=== PATIENT | male | born 1965 | race Caucasian/White ===

== ENCOUNTER → 2017-02-21 | Outpatient (REF) | payer MEDICARE, MEDICAID ==
[~2017-02-21] MED LIST: /ESCI20TA OR; ATIV0.5T OR; CELE20TA OR; CELE40TA OR; IBUP600T OR; INSENTRESS PO; LEXA1TAB2 PO; LEXA5SOL PO; LORA1TAB OR; RISP1TAB41 PO; RISP25INJ IM; RISP2TAB12 OR; RISP3TAB16 OR; RISP3TAB18 PO; RISP3TAB2 PO; RISP4TAB OR; RISP4TAB33 PO; SERO200T OR; SERO200T PO; SERO400T PO; STRITAB PO; TRAZ50TA OR; TRU; TRUVTAB5 PO; VENL75TA2 OR; WELL75TA OR; truvada PO
[2017-02-21 13:19] LABS: ALBUMIN 3.9 GM/DL (3.2-5.2); ALBUMIN/GLOBULIN RATIO 1.08 (1.00-1.93); ALKALINE PHOSPHATASE 93 U/L (45-117); ALT/SGPT 29 U/L (12-78); ANION GAP 4 MEQ/L (8-16); AST/SGOT 23 U/L (15-37); BILIRUBIN,TOTAL 0.4 MG/DL (0.2-1.0); BLOOD UREA NITROGEN 17 MG/DL (7-18); CALCIUM LEVEL 9.4 MG/DL (8.5-10.1); CARBON DIOXIDE LEVEL 32 MEQ/L (21-32); CHLORIDE LEVEL 105 MEQ/L (98-107); CREATININE FOR GFR 0.84 MG/DL (0.70-1.30); GLOMERULAR FILTRATION RATE > 60.0 (>56); GLUCOSE, FASTING 90 MG/DL (70-105); POTASSIUM SERUM 4.9 MEQ/L (3.5-5.1); SODIUM LEVEL 141 MEQ/L (136-145); TOTAL PROTEIN 7.5 GM/DL (6.4-8.2)
[2017-02-23 00:11] LABS: %CD3+CD4+CD8+ 3.2 % (Not Estab.); %CD3+CD4-CD8+ 48.6 % (Not Estab.); %CD3+CD4-CD8- 2.5 % (Not Estab.); ABS CD3+CD4+CD8+ 54 /uL (Not Estab.); ABS CD3+CD4+CD8- 629 /uL (Not Estab.); ABS CD3+CD4-CD8+ 826 /uL (Not Estab.); ABS CD3+CD4-CD8- 43 /uL (Not Estab.); CD4/CD8 NYSDOH RATIO 0.76 (Not Estab.); Eosinophils 1 % (.); HGB 14.2 g/dL (12.6-17.7); Monocytes 7 % (.); Neutrophils 58 % (.); WBC 5.3 x10E3/uL (3.4-10.8)
== END ==
LOC: M SFHCPLAZ 10:06
PROVIDERS: ATTEND Internal Medicine Infectious Disease
DX: B20 Human immunodeficiency virus [HIV] disease (principal); R76.11 Nonspecific reaction to tuberculin skin test without active tuberculosis; F20.9 Schizophrenia, unspecified; F10.10 Alcohol abuse, uncomplicated; Z72.0 Tobacco use; Z79.899 Other long term (current) drug therapy; Z86.19 Personal history of other infectious and parasitic diseases
CPT/HCPCS: 36415; 80053; 81001; 86360; 86780; 87491; 87536; 87591; 90471; 90733; G0463

== ENCOUNTER → 2017-04-04 | Outpatient (CLI) | payer MEDICARE, MEDICAID ==
[~2017-04-04] VITALS: Ht 177.8 cm; Wt 72.6 kg
[~2017-04-04] MED LIST changes: +INVE234I IM; +NS 1,000 ML IV ONE; +ODEF1TAB PO; +PROPOFOL 200 MG/20 ML VIAL As Ordered ONE; +SERO1TAB2 PO
--- NOTE | 2017-04-04 15:20 | ROOR ---
Patient Name: Tu Joel Procedure Date: 04/04/2017 2:50 PM Date of : 1965 Age: 51 Room: [facility] Gender: Male Note Status: Finalized Procedure: Colonoscopy Indications: Screening for colorectal malignant neoplasm Providers: Jadon EASON MD Referring MD: Simba VICENTE MD. Requesting Provider: Medicines: Monitored Anesthesia Care Complications: No immediate complications. Procedure: Pre-Anesthesia Assessment: - The heart rate, respiratory rate, oxygen saturations, blood pressure, adequacy of pulmonary ventilation, and response to care were monitored throughout the procedure. The Colonoscope was introduced through the anus and advanced to the cecum, identified by appendiceal orifice and ileocecal valve. The colonoscopy was performed without difficulty. The patient tolerated the procedure well. The quality of the bowel preparation was good. Findings: The perianal and digital rectal examinations were normal. Internal hemorrhoids were found during retroflexion. The hemorrhoids were small. Two sessile polyps were found in the hepatic flexure. The polyps were 3 to 4 mm in size. These polyps were removed with a cold snare. Resection and retrieval were complete. Three semi-sessile polyps were found in the splenic flexure. The polyps were 4 to 9 mm in size. These polyps were removed with a cold snare. Resection and retrieval were complete. To prevent bleeding after the polypectomy, two hemostatic clips were successfully placed (MR conditional) on the 9 mm polypectomy site in the splenic flexure, as this was semipedunculated. There was no bleeding at the end of the procedure. A few medium-mouthed diverticula were found in the sigmoid colon. The exam was otherwise without abnormality on direct and retroflexion views. Impression: - Internal hemorrhoids. - Two 3 to 4 mm polyps at the hepatic flexure, removed with a cold snare. Resected and retrieved. - Three 4 to 9 mm polyps at the splenic flexure, removed with a cold snare. Resected and retrieved. Clips (MR conditional) were placed. - Mild diverticulosis in the sigmoid colon. - The examination was otherwise normal on direct and retroflexion views. Recommendation: - Repeat colonoscopy in 3 years for surveillance. Jadon Eason MD Jadon EASON MD 04/04/2017 3:20:23 PM This report has been signed electronically. Number of Addenda: 0 Note Initiated On: 04/04/2017 2:50 PM Estimated Blood Loss: Estimated blood loss: none.
[2017-04-04 15:40] VITALS: BP 123/90
== END | disposition home or self-care (01) ==
LOC: M OPP 12:10
PROVIDERS: ATTEND Internal Medicine Gastroenterology
DX: Z12.11 Encounter for screening for malignant neoplasm of colon (principal); D12.3 Benign neoplasm of transverse colon; K57.30 Diverticulosis of large intestine without perforation or abscess without bleeding; K64.8 Other hemorrhoids; Z86.19 Personal history of other infectious and parasitic diseases; B20 Human immunodeficiency virus [HIV] disease; F41.9 Anxiety disorder, unspecified; F32.9 Major depressive disorder, single episode, unspecified; F20.9 Schizophrenia, unspecified; F17.210 Nicotine dependence, cigarettes, uncomplicated; Z79.899 Other long term (current) drug therapy; Z80.3 Family history of malignant neoplasm of breast

== ENCOUNTER → 2017-06-23 | Outpatient (REF) | payer MEDICARE, MEDICAID ==
[~2017-06-23] MED LIST changes: -NS 1,000 ML IV ONE; -PROPOFOL 200 MG/20 ML VIAL As Ordered ONE; -RISP1TAB41 PO; +RISP1TAB42 PO; -RISP3TAB18 PO; +RISP3TAB20 PO
[2017-06-23 14:20] LABS: ALBUMIN/GLOBULIN RATIO 1.18 (1.00-1.93); ALKALINE PHOSPHATASE 87 U/L (45-117); ALT/SGPT 18 U/L (12-78); ANION GAP 7 MEQ/L (8-16); AST/SGOT 12 U/L (15-37); BILIRUBIN,TOTAL 0.4 MG/DL (0.2-1.0); BLOOD UREA NITROGEN 11 MG/DL (7-18); CALCIUM LEVEL 8.8 MG/DL (8.5-10.1); CARBON DIOXIDE LEVEL 28 MEQ/L (21-32); CHLORIDE LEVEL 105 MEQ/L (98-107); CREATININE FOR GFR 0.82 MG/DL (0.70-1.30); GLOMERULAR FILTRATION RATE > 60.0 (>56); GLUCOSE, FASTING 78 MG/DL (70-105); POTASSIUM SERUM 4.6 MEQ/L (3.5-5.1); SODIUM LEVEL 140 MEQ/L (136-145); TOTAL PROTEIN 7.4 GM/DL (6.4-8.2)
[2017-06-25 00:06] LABS: %CD3+CD4+CD8+ 1.7 % (Not Estab.); %CD3+CD4+CD8- 38.8 % (Not Estab.); %CD3+CD4-CD8+ 47.9 % (Not Estab.); %CD3+CD4-CD8- 2.5 % (Not Estab.); ABS CD3+CD4+CD8+ 31 /uL (Not Estab.); ABS CD3+CD4+CD8- 698 /uL (Not Estab.); ABS CD3+CD4-CD8+ 862 /uL (Not Estab.); ABS CD3+CD4-CD8- 45 /uL (Not Estab.); CD4/CD8 NYSDOH RATIO 0.81 (Not Estab.); Eosinophils 2 % (.); HCT 42.5 % (37.5-51.0); HGB 14.6 g/dL (12.6-17.7); Monocytes 8 % (.); Neutrophils 60 % (.); WBC 6.2 x10E3/uL (3.4-10.8)
== END ==
LOC: M SFHCPLAZ 10:48
PROVIDERS: ATTEND Internal Medicine Infectious Disease
DX: B20 Human immunodeficiency virus [HIV] disease (principal)
CPT/HCPCS: 36415; 80053; 81001; 86360; 87536; G0463

== ENCOUNTER 2017-08-31 11:12 | Emergency (ER) | payer MEDICARE, MEDICAID ==
[~2017-08-31] VITALS: Ht 175.3 cm; Wt 72.7 kg
[2017-08-31] MEDS ORDERED: CYCL10TA PO (12:58)
[2017-08-31 13:06] VITALS: BP 146/78
== END 2017-08-31 13:08 | disposition home or self-care (01) ==
LOC: M ED 11:12
DX: M54.41 Lumbago with sciatica, right side (principal); B20 Human immunodeficiency virus [HIV] disease; B19.20 Unspecified viral hepatitis C without hepatic coma; Z86.73 Personal history of transient ischemic attack (TIA), and cerebral infarction without residual deficits; Z79.899 Other long term (current) drug therapy; F17.210 Nicotine dependence, cigarettes, uncomplicated

== ENCOUNTER → 2017-09-20 | Outpatient (REF) | payer MEDICARE, MEDICAID ==
[~2017-09-20] MED LIST changes: +CYCL10TA PO
[2017-09-20 13:48] LABS: ALBUMIN 4.1 GM/DL (3.2-5.2); ALBUMIN/GLOBULIN RATIO 1.14 (1.00-1.93); ALKALINE PHOSPHATASE 108 U/L (45-117); ALT/SGPT 41 U/L (12-78); ANION GAP 7 MEQ/L (8-16); AST/SGOT 37 U/L (7-37); BILIRUBIN,TOTAL 0.4 MG/DL (0.2-1.0); BLOOD UREA NITROGEN 11 MG/DL (7-18); CALCIUM LEVEL 9.8 MG/DL (8.5-10.1); CARBON DIOXIDE LEVEL 30 MEQ/L (21-32); CHLORIDE LEVEL 104 MEQ/L (98-107); CREATININE FOR GFR 0.83 MG/DL (0.70-1.30); GLOMERULAR FILTRATION RATE > 60.0 (>56); GLUCOSE, FASTING 85 MG/DL (70-105); POTASSIUM SERUM 4.6 MEQ/L (3.5-5.1); SODIUM LEVEL 141 MEQ/L (136-145); TOTAL PROTEIN 7.7 GM/DL (6.4-8.2)
[2017-09-21 14:15] LABS: Eosinophils 2 % (Not Estab.); HCT 43.1 % (37.5-51.0); HGB 14.3 g/dL (13.0-17.7); Monocytes 7 % (Not Estab.); Neutrophils 67 % (Not Estab.); WBC 5.5 x10E3/uL (3.4-10.8)
== END ==
LOC: M SFHCPLAZ 10:07
PROVIDERS: ATTEND Internal Medicine Infectious Disease
DX: B20 Human immunodeficiency virus [HIV] disease (principal); Z23 Encounter for immunization
CPT/HCPCS: 36415; 80053; 86360; 87536; 90686; G0008; G0463

== ENCOUNTER → 2018-01-24 | Outpatient (REF) | payer MEDICARE, MEDICAID ==
[2018-01-24 12:12] LABS: ALBUMIN/GLOBULIN RATIO 1.11 (1.00-1.93); ALKALINE PHOSPHATASE 91 U/L (45-117); ALT/SGPT 48 U/L (12-78); ANION GAP 7 MEQ/L (8-16); AST/SGOT 54 U/L (7-37); BILIRUBIN,TOTAL 0.5 MG/DL (0.2-1.0); BLOOD UREA NITROGEN 17 MG/DL (7-18); CARBON DIOXIDE LEVEL 27 MEQ/L (21-32); CHLORIDE LEVEL 106 MEQ/L (98-107); CHOLESTEROL LEVEL 191 MG/DL (<200); CREATININE FOR GFR 0.85 MG/DL (0.70-1.30); GLOMERULAR FILTRATION RATE > 60.0 (>56); GLUCOSE, FASTING 95 MG/DL (70-100); HDL CHOLESTEROL 95 MG/DL (>40); LDL CHOLESTEROL 82.2 MG/DL (<100); NON-HDL-C 96 MG/DL; POTASSIUM SERUM 4.2 MEQ/L (3.5-5.1); SODIUM LEVEL 140 MEQ/L (136-145); TOTAL PROTEIN 7.6 GM/DL (6.4-8.2); TRIGLYCERIDES LEVEL 69 MG/DL (<150)
[2018-01-24 12:34] LABS: APPEARANCE, URINE CLEAR (CLEAR); BACTERIA, URINE AUTO NEGATIVE (NEGATIVE); BILIRUBIN, URINE AUTO NEGATIVE (NEGATIVE); BLOOD, URINE BLOOD NEGATIVE (NEGATIVE); COLOR, URINE YELLOW (YELLOW); GLUCOSE, URINE (UA) AUTO NEGATIVE (NEGATIVE); KETONE, URINE AUTO TRACE mg/dL (NEGATIVE); LEUKOCYTE ESTERASE, URINE AUTO NEGATIVE (NEGATIVE); MUCUS, URINE SMALL (NEGATIVE); NITRITE, URINE AUTO NEGATIVE (NEGATIVE); PROTEIN, URINE AUTO NEGATIVE (NEGATIVE); RBC, URINE AUTO 3 /HPF (0-3); SPECIFIC GRAVITY URINE AUTO 1.019 (1.002-1.035); SQUAMOUS EPITHELIAL CELL UR AU 0 /HPF (0-6); UROBILINOGEN, URINE AUTO 0.2 mg/dL (0.0-2.0); WBC, URINE AUTO 0 /HPF (0-3)
[2018-01-24 15:54] LABS: CHLAMYDIA DNA AMPLIFICATION NEGATIVE (NEGATIVE); GC DNA AMPLIFICATION NEGATIVE (NEGATIVE)
[2018-01-25 14:34] LABS: % CD8 Pos Lymph 50.6 % (12.0-35.5); %CD4 Pos Lymphs 39.7 % (30.8-58.5); ABS Eosinophils 0.1 x10E3/uL (0.0-0.4); ABS Lymphs 1.5 x10E3/uL (0.7-3.1); ABS Monocytes 0.6 x10E3/uL (0.1-0.9); ABS Neutophils 4.2 x10E3/uL (1.4-7.0); Abs CD4 Helper 596 /uL (359-1519); Abs CD8 Suppres 759 /uL (109-897); CD4/CD8 Ratio 0.78 (0.92-3.72); Eosinophils 2 % (Not Estab.); HCT 43.1 % (37.5-51.0); HGB 14.7 g/dL (13.0-17.7); Immature Grans 0 % (Not Estab.); Lymphocytes 23 % (Not Estab.); MCH 32.9 pg (26.6-33.0); MCHC 34.1 g/dL (31.5-35.7); MCV 96 fL (79-97); Monocytes 9 % (Not Estab.); Neutrophils 66 % (Not Estab.); Platelets 290 x10E3/uL (150-379); RBC 4.47 x10E6/uL (4.14-5.80); RDW 14.1 % (12.3-15.4); WBC 6.4 x10E3/uL (3.4-10.8)
[2018-01-27 00:21] LABS: HIV-1 RNA PCR QUANT 2 LC550285 <20 copies/mL (.)
== END ==
LOC: M SFHCPLAZ 09:35
DX: B20 Human immunodeficiency virus [HIV] disease (principal); Z11.3 Encounter for screening for infections with a predominantly sexual mode of transmission; E78.00 Pure hypercholesterolemia, unspecified; Z72.0 Tobacco use; F20.9 Schizophrenia, unspecified; R76.11 Nonspecific reaction to tuberculin skin test without active tuberculosis; F10.10 Alcohol abuse, uncomplicated; J44.9 Chronic obstructive pulmonary disease, unspecified
CPT/HCPCS: 80053

== ENCOUNTER → 2018-04-18 | Outpatient (CLI) | payer MEDICARE, MEDICAID | LOC: M RAD 11:38 | DX: N50.819 Testicular pain, unspecified (principal) | CPT/HCPCS: 76870 ==

== ENCOUNTER → 2018-06-27 | Outpatient (REF) | payer MEDICARE, MEDICAID ==
[2018-06-27 13:31] LABS: ALBUMIN 3.7 GM/DL (3.2-5.2); ALKALINE PHOSPHATASE 89 U/L (45-117); ALT/SGPT 22 U/L (12-78); ANION GAP 8 MEQ/L (8-16); AST/SGOT 14 U/L (7-37); BILIRUBIN,TOTAL 0.5 MG/DL (0.2-1.0); BLOOD UREA NITROGEN 12 MG/DL (7-18); CALCIUM LEVEL 8.6 MG/DL (8.5-10.1); CARBON DIOXIDE LEVEL 25 MEQ/L (21-32); CHLORIDE LEVEL 105 MEQ/L (98-107); CHOLESTEROL LEVEL 150 MG/DL (<200); CHOLESTEROL RISK RATIO 2.542 (<5); CREATININE FOR GFR 0.79 MG/DL (0.70-1.30); FREE T4 1.02 NG/DL (0.76-1.46); GLOMERULAR FILTRATION RATE > 60.0 (>56); GLUCOSE, FASTING 86 MG/DL (70-100); HDL CHOLESTEROL 59 MG/DL (>40); LDL CHOLESTEROL 74 MG/DL (<100); NON-HDL-C 91 MG/DL; POTASSIUM SERUM 4.2 MEQ/L (3.5-5.1); SODIUM LEVEL 138 MEQ/L (136-145); TRIGLYCERIDES LEVEL 84 MG/DL (<150); TROPONIN I < 0.02 NG/ML (< 0.10)
[2018-06-27 16:38] LABS: ALBUMIN/GLOBULIN RATIO 1.12 (1.00-1.93)
[2018-06-30 00:06] LABS: % CD8 Pos Lymph 53.2 % (12.0-35.5); ABS Eosinophils 0.2 x10E3/uL (0.0-0.4); ABS Lymphs 1.9 x10E3/uL (0.7-3.1); ABS Monocytes 0.5 x10E3/uL (0.1-0.9); ABS Neutophils 5.4 x10E3/uL (1.4-7.0); Abs CD4 Helper 760 /uL (359-1519); Abs CD8 Suppres 1011 /uL (109-897); CD4/CD8 Ratio 0.75 (0.92-3.72); Eosinophils 3 % (Not Estab.); HCT 40.4 % (37.5-51.0); HEPATITIS C QUANTITATION HCV Not Detected IU/mL (.); HGB 13.9 g/dL (13.0-17.7); HIV-1 RNA PCR QUANT 2 LC550285 <20 copies/mL (.); Immature Grans 0 % (Not Estab.); Lymphocytes 24 % (Not Estab.); MCH 32.8 pg (26.6-33.0); MCHC 34.4 g/dL (31.5-35.7); MCV 95 fL (79-97); Monocytes 6 % (Not Estab.); Neutrophils 66 % (Not Estab.); Platelets 284 x10E3/uL (150-379); RBC 4.24 x10E6/uL (4.14-5.80); RDW 13.5 % (12.3-15.4); WBC 8.2 x10E3/uL (3.4-10.8)
== END ==
LOC: M SFHCPLAZ 09:19
DX: B20 Human immunodeficiency virus [HIV] disease (principal); R63.4 Abnormal weight loss; R07.89 Other chest pain; E78.00 Pure hypercholesterolemia, unspecified; B18.2 Chronic viral hepatitis C; Z23 Encounter for immunization
CPT/HCPCS: 84443

== ENCOUNTER → 2018-10-30 | Outpatient (REF) | payer MEDICARE, MEDICAID ==
[2018-10-30 09:59] LABS: APPEARANCE, URINE CLEAR (CLEAR); BACTERIA, URINE AUTO NEGATIVE (NEGATIVE); BILIRUBIN, URINE AUTO NEGATIVE (NEGATIVE); BLOOD, URINE BLOOD NEGATIVE (NEGATIVE); COLOR, URINE YELLOW (YELLOW); GLUCOSE, URINE (UA) AUTO NEGATIVE (NEGATIVE); KETONE, URINE AUTO NEGATIVE (NEGATIVE); LEUKOCYTE ESTERASE, URINE AUTO NEGATIVE (NEGATIVE); MUCUS, URINE SMALL (NEGATIVE); NITRITE, URINE AUTO NEGATIVE (NEGATIVE); PROTEIN, URINE AUTO NEGATIVE (NEGATIVE); RBC, URINE AUTO 1 /HPF (0-3); SPECIFIC GRAVITY URINE AUTO 1.011 (1.002-1.035); SQUAMOUS EPITHELIAL CELL UR AU 0 /HPF (0-6); UROBILINOGEN, URINE AUTO 0.2 mg/dL (0.0-2.0); WBC, URINE AUTO 0 /HPF (0-3)
[2018-10-30 10:32] LABS: ALBUMIN 3.7 GM/DL (3.2-5.2); ALT/SGPT 28 U/L (12-78); BILIRUBIN,TOTAL 0.2 MG/DL (0.2-1.0); BLOOD UREA NITROGEN 21 MG/DL (7-18); CALCIUM LEVEL 8.9 MG/DL (8.5-10.1); CARBON DIOXIDE LEVEL 29 MEQ/L (21-32); CHLORIDE LEVEL 100 MEQ/L (98-107); CHOLESTEROL LEVEL 198 MG/DL (<200); CHOLESTEROL RISK RATIO 2.357 (<5); CREATININE FOR GFR 0.76 MG/DL (0.70-1.30); GLOMERULAR FILTRATION RATE > 60.0 (>56); GLUCOSE, FASTING 89 MG/DL (70-100); HDL CHOLESTEROL 84 MG/DL (>40); LDL CHOLESTEROL 102 MG/DL (<100); NON-HDL-C 114 MG/DL; SODIUM LEVEL 137 MEQ/L (136-145); TRIGLYCERIDES LEVEL 60 MG/DL (<150)
[2018-10-30 11:32] LABS: CHLAMYDIA DNA AMPLIFICATION NEGATIVE (NEGATIVE); GC DNA AMPLIFICATION NEGATIVE (NEGATIVE)
[2018-11-03 00:10] LABS: % CD8 Pos Lymph 49.2 % (12.0-35.5); ABS Eosinophils 0.2 x10E3/uL (0.0-0.4); ABS Lymphs 1.6 x10E3/uL (0.7-3.1); ABS Monocytes 0.5 x10E3/uL (0.1-0.9); ABS Neutophils 4.8 x10E3/uL (1.4-7.0); Abs CD4 Helper 688 /uL (359-1519); Abs CD8 Suppres 787 /uL (109-897); CD4/CD8 Ratio 0.87 (0.92-3.72); Eosinophils 3 % (Not Estab.); HCT 39.7 % (37.5-51.0); HGB 13.6 g/dL (13.0-17.7); HIV-1 RNA PCR QUANT 2 LC550285 <20 copies/mL (.); Immature Grans 0 % (Not Estab.); Lymphocytes 23 % (Not Estab.); MCH 32.2 pg (26.6-33.0); MCHC 34.3 g/dL (31.5-35.7); MCV 94 fL (79-97); Monocytes 7 % (Not Estab.); Neutrophils 66 % (Not Estab.); Platelets 282 x10E3/uL (150-379); RBC 4.23 x10E6/uL (4.14-5.80); WBC 7.2 x10E3/uL (3.4-10.8)
== END ==
LOC: M SFHCPLAZ 08:02
PROVIDERS: ATTEND Internal Medicine Infectious Disease
DX: B20 Human immunodeficiency virus [HIV] disease (principal); E78.00 Pure hypercholesterolemia, unspecified
CPT/HCPCS: 36415; 80053; 80061; 81001; 86360; 87491; 87536; 87591; G0463

== ENCOUNTER → 2019-04-30 | Outpatient (REF) | payer MEDICARE, MEDICAID ==
[~2019-04-30] MED LIST changes: -/ESCI20TA OR; +LEXA1TAB2 OR
[2019-04-30 11:05] LABS: ALT/SGPT 35 U/L (12-78); BILIRUBIN,TOTAL 0.6 MG/DL (0.2-1.0); BLOOD UREA NITROGEN 15 MG/DL (7-18); CARBON DIOXIDE LEVEL 29 MEQ/L (21-32); CHLORIDE LEVEL 101 MEQ/L (98-107); CREATININE FOR GFR 0.88 MG/DL (0.70-1.30); GLOMERULAR FILTRATION RATE > 60.0 (>56); GLUCOSE, FASTING 90 MG/DL (70-100); SODIUM LEVEL 136 MEQ/L (136-145); TOTAL PROTEIN 7.4 GM/DL (6.4-8.2)
[2019-05-04 00:06] LABS: % CD8 Pos Lymph 51.2 % (12.0-35.5); %CD4 Pos Lymphs 42.4 % (30.8-58.5); ABS Eosinophils 0.1 x10E3/uL (0.0-0.4); ABS Lymphs 1.3 x10E3/uL (0.7-3.1); ABS Monocytes 0.4 x10E3/uL (0.1-0.9); ABS Neutophils 3.5 x10E3/uL (1.4-7.0); Abs CD4 Helper 551 /uL (359-1519); Abs CD8 Suppres 666 /uL (109-897); CD4/CD8 Ratio 0.83 (0.92-3.72); Eosinophils 2 % (Not Estab.); HCT 43.8 % (37.5-51.0); HEPATITIS C QUANTITATION HCV Not Detected IU/mL (.); HGB 14.9 g/dL (13.0-17.7); HIV-1 RNA PCR QUANT 2 LC550285 <20 copies/mL (.); Immature Grans 0 % (Not Estab.); Lymphocytes 25 % (Not Estab.); MCH 33.1 pg (26.6-33.0); MCV 97 fL (79-97); Monocytes 8 % (Not Estab.); Neutrophils 65 % (Not Estab.); Platelets 221 x10E3/uL (150-450); RDW 14.3 % (12.3-15.4); WBC 5.5 x10E3/uL (3.4-10.8)
== END ==
LOC: M SFHCPLAZ 08:06
PROVIDERS: ATTEND Internal Medicine Infectious Disease
DX: B20 Human immunodeficiency virus [HIV] disease (principal); B18.2 Chronic viral hepatitis C; Z12.5 Encounter for screening for malignant neoplasm of prostate
CPT/HCPCS: 36415; 80053; 86360; 86780; 87522; 87536; G0103; G0463

== ENCOUNTER → 2019-09-03 | Outpatient (REF) | payer MEDICARE, MEDICAID ==
[2019-09-03 11:09] LABS: ALBUMIN 3.6 GM/DL (3.2-5.2); ALT/SGPT 36 U/L (12-78); BILIRUBIN,TOTAL 0.6 MG/DL (0.2-1.0); BLOOD UREA NITROGEN 19 MG/DL (7-18); CALCIUM LEVEL 8.8 MG/DL (8.5-10.1); CARBON DIOXIDE LEVEL 28 MEQ/L (21-32); CHLORIDE LEVEL 99 MEQ/L (98-107); CREATININE FOR GFR 0.98 MG/DL (0.70-1.30); GLOMERULAR FILTRATION RATE > 60.0 (>56); GLUCOSE, FASTING 150 MG/DL (70-100); POTASSIUM SERUM 4.6 MEQ/L (3.5-5.1); SODIUM LEVEL 136 MEQ/L (136-145); TOTAL PROTEIN 7.1 GM/DL (6.4-8.2)
[2019-09-06 00:06] LABS: % CD8 Pos Lymph 48.4 % (12.0-35.5); %CD4 Pos Lymphs 45.1 % (30.8-58.5); ABS Eosinophils 0.1 x10E3/uL (0.0-0.4); ABS Lymphs 1.3 x10E3/uL (0.7-3.1); ABS Monocytes 0.3 x10E3/uL (0.1-0.9); ABS Neutophils 3.8 x10E3/uL (1.4-7.0); Abs CD4 Helper 586 /uL (359-1519); Abs CD8 Suppres 629 /uL (109-897); CD4/CD8 Ratio 0.93 (0.92-3.72); Eosinophils 2 % (Not Estab.); HCT 40.2 % (37.5-51.0); HGB 13.4 g/dL (13.0-17.7); HIV-1 RNA PCR QUANT 2 LC550285 60 copies/mL (.); HIV-1 RNA PCR QUANT 3 LC550285 1.778 (.); Immature Grans 0 % (Not Estab.); Lymphocytes 23 % (Not Estab.); MCH 31.7 pg (26.6-33.0); MCHC 33.3 g/dL (31.5-35.7); MCV 95 fL (79-97); Monocytes 5 % (Not Estab.); Neutrophils 69 % (Not Estab.); Platelets 266 x10E3/uL (150-450); RBC 4.23 x10E6/uL (4.14-5.80); RDW 14.1 % (12.3-15.4); WBC 5.6 x10E3/uL (3.4-10.8)
== END ==
LOC: M SFHCPLAZ 08:10
PROVIDERS: ATTEND Internal Medicine Infectious Disease
DX: B20 Human immunodeficiency virus [HIV] disease (principal)
CPT/HCPCS: 36415; 80053; 86360; 87536; 90682; G0008; G0463

== ENCOUNTER → 2020-02-25 | Outpatient (REF) | payer MEDICARE, MEDICAID ==
[~2020-02-25] MED LIST changes: +CYCL-707 PO; -CYCL10TA PO
[2020-02-25 13:45] LABS: ALBUMIN 4.2 GM/DL (3.2-5.2); ALT/SGPT 29 U/L (12-78); BILIRUBIN,TOTAL 0.6 MG/DL (0.2-1.0); BLOOD UREA NITROGEN 12 MG/DL (7-18); CALCIUM LEVEL 9.1 MG/DL (8.5-10.1); CARBON DIOXIDE LEVEL 27 MEQ/L (21-32); CHLORIDE LEVEL 103 MEQ/L (98-107); CHOLESTEROL LEVEL 208 MG/DL (<200); CREATININE FOR GFR 0.95 MG/DL (0.70-1.30); GLOMERULAR FILTRATION RATE > 60.0 (>56); GLUCOSE, FASTING 100 MG/DL (70-100); HDL CHOLESTEROL 110 MG/DL (>40); LDL CHOLESTEROL 86 MG/DL (<100); NON-HDL-C 98 MG/DL; POTASSIUM SERUM 4.3 MEQ/L (3.5-5.1); SODIUM LEVEL 137 MEQ/L (136-145); TOTAL PROTEIN 7.7 GM/DL (6.4-8.2); TRIGLYCERIDES LEVEL 59 MG/DL (<150)
== END ==
LOC: M SFHCPLAZ 08:35
PROVIDERS: ATTEND Internal Medicine Infectious Disease
DX: B20 Human immunodeficiency virus [HIV] disease (principal); E78.00 Pure hypercholesterolemia, unspecified

== ENCOUNTER 2020-05-13 14:50 | Emergency (ER) | payer MEDICARE, MEDICAID ==
[2020-06-08 22:44] LABS: ACETAMINOPHEN LEVEL < 2.0 UG/ML (10.0-30.0); ALBUMIN 3.7 GM/DL (3.2-5.2); ALT/SGPT 37 U/L (12-78); BILIRUBIN,DIRECT 0.1 MG/DL (0.0-0.2); BILIRUBIN,TOTAL 0.4 MG/DL (0.2-1.0); BLOOD UREA NITROGEN 9 MG/DL (7-18); CALCIUM LEVEL 8.8 MG/DL (8.5-10.1); CARBON DIOXIDE LEVEL 26 MEQ/L (21-32); CHLORIDE LEVEL 105 MEQ/L (98-107); CREATININE FOR GFR 0.85 MG/DL (0.70-1.30); ETHYL ALCOHOL (ETHANOL) 0.256 % (0.000-0.010); GLOMERULAR FILTRATION RATE > 60.0 (>56); GLUCOSE, FASTING 84 MG/DL (70-100); SALICYLATE LEVEL 2.5 MG/DL (5.0-30.0); SODIUM LEVEL 140 MEQ/L (136-145); TOTAL PROTEIN 7.5 GM/DL (6.4-8.2)
[2020-06-08 22:44] LABS: AMPHETAMINES LEVEL URINE NEGATIVE (NEGATIVE); BARBITURATES URINE NEGATIVE (NEGATIVE); BENZODIAZEPINES URINE NEGATIVE (NEGATIVE); CANNABINOIDS URINE NEGATIVE (NEGATIVE); COCAINE METABOLITE URINE NEGATIVE (NEGATIVE); METHADONE URINE NEGATIVE (NEGATIVE); OPIATES URINE NEGATIVE (NEGATIVE); PHENCYCLIDINE URINE NEGATIVE (NEGATIVE)
[2020-06-13 23:16] LABS: HEMATOCRIT 40.8 % (42.0-52.0); HEMOGLOBIN 14.2 g/dl (13.5-17.5); MEAN CORPUSCULAR HEMOGLOBIN 32.6 pg (27.0-33.0); MEAN CORPUSCULAR HGB CONC 34.8 g/dl (32.0-36.5); MEAN CORPUSCULAR VOLUME 93.8 fl (80.0-96.0); PLATELET COUNT, AUTOMATED 263 10^3/uL (150-450); RED BLOOD COUNT 4.35 10^6/uL (4.30-6.10); WHITE BLOOD COUNT 5.5 10^3/uL (4.0-10.0)
[2020-07-29] MEDS ORDERED: BIKT1TAB PO (15:41)
[2020-07-29] MEDS ORDERED: INVE1.75 IM (15:41)
[2020-07-29] MEDS ORDERED: TRAZ-252 PO (15:41)
== END 2020-05-13 17:20 | disposition home or self-care (01) ==
LOC: M ED 14:50
DX: F33.9 Major depressive disorder, recurrent, unspecified (principal); J44.9 Chronic obstructive pulmonary disease, unspecified; E78.5 Hyperlipidemia, unspecified; F25.9 Schizoaffective disorder, unspecified; B19.20 Unspecified viral hepatitis C without hepatic coma; K21.9 Gastro-esophageal reflux disease without esophagitis; F10.10 Alcohol abuse, uncomplicated; Z21 Asymptomatic human immunodeficiency virus [HIV] infection status; Z79.899 Other long term (current) drug therapy; F17.210 Nicotine dependence, cigarettes, uncomplicated
CPT/HCPCS: 36415; 80048; 80076; 80307; 84443; 85027; 99284; G0480

== ENCOUNTER → 2020-07-27 | Outpatient (CLI) | payer MEDICARE, MEDICAID ==
[~2020-07-27] MED LIST changes: +BIKT1TAB PO; +INVE1.75 IM; +TRAZ-252 PO
== END ==
LOC: M LABSMTC 10:34
PROVIDERS: ATTEND Anesthesiology
DX: Z01.812 Encounter for preprocedural laboratory examination (principal); Z20.828 Contact with and (suspected) exposure to other viral communicable diseases
CPT/HCPCS: C9803; U0003

== ENCOUNTER → 2023-11-28 | Outpatient (CLI) | payer OTHER, MEDICAID ==
[2023-11-28 17:11] LABS: ALBUMIN 3.7 G/DL (3.2-5.2); ALKALINE PHOSPHATASE 92 U/L (46-116); ALT/SGPT 9 U/L (7.0-40); AST/SGOT 11 U/L (<34); BILIRUBIN,TOTAL 0.3 MG/DL (0.3-1.2); BLOOD UREA NITROGEN 10 MG/DL (9-23); CALCIUM LEVEL 9.1 MG/DL (8.5-10.1); CARBON DIOXIDE LEVEL 27 MMOL/L (20-31); CHLORIDE LEVEL 106 MMOL/L (98-107); GLOMERULAR FILTRATION RATE > 60.0 (>56); GLUCOSE, FASTING 82 MG/DL (60-100); POTASSIUM SERUM 4.5 MMOL/L (3.5-5.1); SODIUM LEVEL 138 MMOL/L (136-145); TOTAL PROTEIN 6.7 G/DL (5.7-8.2)
[2023-11-28 17:19] LABS: HEPATITIS B SURFACE ANTIBODY POSITIVE (POSITIVE)
== END ==
LOC: M PLALAB 14:23
PROVIDERS: ATTEND Internal Medicine Infectious Disease
DX: B20 Human immunodeficiency virus [HIV] disease (principal); B18.2 Chronic viral hepatitis C

== ENCOUNTER → 2024-10-25 | Outpatient (CLI) | payer MEDICARE, MEDICAID ==
[2024-10-25 16:33] LABS: APPEARANCE, URINE CLEAR (CLEAR); BACTERIA, URINE AUTO NEGATIVE (NEGATIVE); BILIRUBIN, URINE AUTO NEGATIVE (NEGATIVE); BLOOD, URINE BLOOD 1+ (NEGATIVE); COLOR, URINE STRAW (YELLOW); GLUCOSE, URINE (UA) AUTO NEGATIVE (NEGATIVE); KETONE, URINE AUTO NEGATIVE (NEGATIVE); LEUKOCYTE ESTERASE, URINE AUTO NEGATIVE (NEGATIVE); MUCUS, URINE SMALL (NEGATIVE); NITRITE, URINE AUTO NEGATIVE (NEGATIVE); PROTEIN, URINE AUTO NEGATIVE (NEGATIVE); RBC, URINE AUTO 0 /HPF (0-3); SPECIFIC GRAVITY URINE AUTO 1.003 (1.002-1.035); SQUAMOUS EPITHELIAL CELL UR AU 0 /HPF (0-6); UROBILINOGEN, URINE AUTO 0.2 mg/dL (0.0-2.0); WBC, URINE AUTO 0 /HPF (0-3)
[2024-10-25 16:48] LABS: ALBUMIN 3.8 G/DL (3.2-5.2); ALKALINE PHOSPHATASE 98 U/L (40-129); ALT/SGPT 18 U/L (7.0-40); AST/SGOT 18 U/L (<34); BILIRUBIN,TOTAL 0.4 MG/DL (0.3-1.2); BLOOD UREA NITROGEN 11 MG/DL (9-23); CALCIUM LEVEL 9.5 MG/DL (8.5-10.1); CARBON DIOXIDE LEVEL 27 MMOL/L (20-31); CHLORIDE LEVEL 104 MMOL/L (98-107); CREATININE FOR GFR 0.77 MG/DL (0.70-1.30); GLOMERULAR FILTRATION RATE > 60.0 (>56); GLUCOSE, FASTING 94 MG/DL (60-100); POTASSIUM SERUM 4.1 MMOL/L (3.5-5.1); SODIUM LEVEL 141 MMOL/L (136-145); TOTAL PROTEIN 7.4 G/DL (5.7-8.2)
[2024-10-25 17:45] LABS: GC DNA AMPLIFICATION NEGATIVE (NEGATIVE)
[2024-10-27 19:06] LABS: % CD4+ LYMPHS 45.4 % (30.8-58.5); ABSOLUTE CD4 HELPER 999 /uL (359-1519); BASOPHILS 1 % (Not Estab.); BASOPHILS ABSOLUTE 0.1 x10E3/uL (0.0-0.2); EOSINOPHILS 2 % (Not Estab.); EOSINOPHILS ABSOLUTE 0.1 x10E3/uL (0.0-0.4); HCT 41.7 % (37.5-51.0); HGB 13.3 g/dL (13.0-17.7); LYMPHOCYTES 36 % (Not Estab.); LYMPHOCYTES ABSOLUTE 2.2 x10E3/uL (0.7-3.1); MCH 30.9 pg (26.6-33.0); MCHC 31.9 g/dL (31.5-35.7); MCV 97 fL (79-97); MONOCYTES 8 % (Not Estab.); MONOCYTES ABSOLUTE 0.5 x10E3/uL (0.1-0.9); NEUTROPHILS 52 % (Not Estab.); NEUTROPHILS ABSOLUTE 3.3 x10E3/uL (1.4-7.0); PLT 341 x10E3/uL (150-450); RBC 4.31 x10E6/uL (4.14-5.80); RDW 13.1 % (11.6-15.4); WBC 6.2 x10E3/uL (3.4-10.8)
[2024-10-29 11:28] LABS: RPR NON-REACTIVE (NON-REACTIVE)
[2024-10-29 14:31] LABS: HIV-1 RNA PCR QUANT 2 31 copies/mL (NOT DETECTED); HIV-1 RNA PCR QUANT 3 1.49 (NOT DETECTED)
[2024-11-01 14:42] LABS: ALPHA 2-MACROGLOBULINS,QN 176 mg/dL (106-279); ALT (SGPT) P5P 11 U/L (9-46); APOLIPOPROTEIN A-1 182 mg/dL (94-176); BILIRUBIN, TOTAL 0.4 mg/dL (0.2-1.2); FIBROSIS SCORE 0.07; FIBROSIS STAGE NO FIBROSIS (F0); GGT 12 U/L (3-85); HAPTOGLOBIN 234 mg/dL (43-212); NECROINFLAM ACT GRADE NO ACTIVITY (A0); NECROINFLAM ACT SCORE 0.02
== END ==
LOC: M PLALAB 13:10
PROVIDERS: ATTEND Internal Medicine Infectious Disease
DX: B20 Human immunodeficiency virus [HIV] disease (principal); B18.2 Chronic viral hepatitis C; Z11.3 Encounter for screening for infections with a predominantly sexual mode of transmission; Z72.89 Other problems related to lifestyle